=== PATIENT | male | born 1960 | race Native Hawaiian/Other Pacific Islander ===

== ENCOUNTER 2017-12-11 14:41 | Emergency (ER) | payer OTHER ==
[~2017-12-11] VITALS: Ht 175.3 cm; Wt 85.3 kg
[2017-12-11 14:44] VITALS: TEMP 98.6
[2017-12-11] MEDS ORDERED: LANTUS100 MG/ML SC (14:57)
[2017-12-11] MEDS ORDERED: NOVOLOG100 MG/ML SC (14:57)
[2017-12-11] MEDS ORDERED: VENL37.511 PO (14:58)
[2017-12-11] MEDS ORDERED: CARV6.25 PO (14:58)
[2017-12-11] MEDS ORDERED: COZAAR25 MG PO (14:59)
[2017-12-11] MEDS ORDERED: NORCO 10/325***1 TAB PO (14:59)
[2017-12-11] MEDS ORDERED: LIPITOR20 MG PO (14:59)
[2017-12-11 15:47] LABS: PLATELET COUNT 205 K/uL (142-355)
[2017-12-11 15:51] LABS: POTASSIUM 3.9 mmol/L (3.6-5.2)
[2017-12-11 16:49] VITALS: BP 136/74
== END 2017-12-11 16:50 | disposition home or self-care (01) ==
LOC: ED 14:41
PROVIDERS: Family Medicine
DX: E11.649 Type 2 diabetes mellitus with hypoglycemia without coma (principal)
CPT/HCPCS: 36415; 80053; 81000; 85027; 99283

== ENCOUNTER 2018-02-14 13:01 | Emergency (ER) | payer OTHER ==
[~2018-02-14] VITALS: Ht 177.8 cm; Wt 86.2 kg
[~2018-02-14 13:01] MED LIST: CARV6.25 PO; COZAAR25 MG PO; LANTUS100 MG/ML SC; LIPITOR20 MG PO; NORCO 10/325***1 TAB PO; NOVOLOG100 MG/ML SC; VENL37.511 PO
[2018-02-14 13:20] VITALS: TEMP 97.8
[2018-02-14 15:11] LABS: PLATELET COUNT 249 K/uL (142-355)
[2018-02-14 15:20] LABS: POTASSIUM 3.9 mmol/L (3.6-5.2)
[2018-02-14 16:12] VITALS: BP 133/90
== END 2018-02-14 16:12 | disposition home or self-care (01) ==
LOC: ED 13:01
PROVIDERS: Family Medicine
DX: A07.2 Cryptosporidiosis (principal)
CPT/HCPCS: 36415; 80053; 81000; 82150; 83690; 85027; 87328; 87329; 99283

== ENCOUNTER 2019-01-31 17:46 | Emergency (ER) | payer OTHER ==
[~2019-01-31] VITALS: Ht 177.8 cm; Wt 90.7 kg
[2019-01-31] MEDS ORDERED: KAPSPARGO SPRI100 MG PO (18:13)
[2019-01-31] MEDS ORDERED: ALBU90AE13 INH (18:15)
[2019-01-31] MEDS ORDERED: ROSUVASTATIN CA20 MG PO (18:16)
[2019-01-31 18:33] LABS: PLATELET COUNT 223 K/uL (142-355)
[2019-01-31 18:35] LABS: POTASSIUM 3.7 mmol/L (3.6-5.2); SODIUM 136 mmol/L (136-145)
[2019-01-31 22:12] VITALS: BP 136/78; TEMP 98
== END 2019-01-31 22:15 | disposition home or self-care (01) ==
LOC: ED 17:46
PROVIDERS: Emergency Medicine
DX: R07.89 Other chest pain (principal); R00.0 Tachycardia, unspecified; R94.31 Abnormal electrocardiogram [ECG] [EKG]
CPT/HCPCS: 36415; 80053; 82550; 82553; 84484; 85027; 85379; 93005; 94664; 99284

== ENCOUNTER 2022-01-22 09:47 | Outpatient (CLI) | payer OTHER ==
[~2022-01-22 09:47] MED LIST changes: +ALBU90AE13 INH; +KAPSPARGO SPRI100 MG PO; +ROSUVASTATIN CA20 MG PO
== END 2022-01-22 19:04 | disposition home or self-care (01) ==
LOC: CT 09:47
PROVIDERS: ATTEND Physician Assistant
DX: R41.3 Other amnesia (principal)